=== PATIENT | female | born 1995 | race Caucasian/White ===

== ENCOUNTER 2018-11-18 19:17 | Emergency (ER) | payer BC ==
[2018-11-18 19:22] VITALS: BP 135/92
--- NOTE | 2018-11-18 20:35 | ED ---
Laceration/Wound HPI - HPI Summary HPI Summary: 22 year old female presents with right pinky laceration. cut it while doing dishes on some glass. She denies any foreign body in the wound. area is not actively bleeding. she has full range of motion of finger. Has no medical conditions. - History of Current Complaint Stated Complaint: RT HAND LAC PER PT Time Seen by Provider: 11/18/18 20:21 Pain Intensity: 3 - Allergy/Home Medications Allergies/Adverse Reactions: Allergies Allergy/AdvReac Type Severity Reaction Status Date / Time No Known Allergies Allergy Verified 11/18/18 19:18 Home Medications: Home Medications Desogestrel-Ethinyl Estradiol [ 28 Day Tablet] 1 tab PO DAILY 11/18/18 [ History Confirmed 11/18/18] PMH/Surg Hx/FS Hx/Imm Hx Endocrine/Hematology History: Denies: Hx Anticoagulant Therapy Respiratory History: Denies: Hx Asthma Infectious Disease History: No Infectious Disease History: Denies: Traveled Outside the [place] in Last 30 Days - Family History Known Family History: Positive: Non-Contributory - Social History Alcohol Use: Weekly Substance Use Type: Reports: Marijuana Smoking Status (MU): Never Smoked Tobacco Review of Systems Negative: Fever Negative: Chest Pain Negative: Shortness Of Breath Positive: Other - right pinky laceration All Other Systems Reviewed And Are Negative: Yes Physical Exam Triage Information Reviewed: Yes Vital Signs On Initial Exam: Initial Vitals Temp Pulse Resp BP Pulse Ox 97.9 F 95 18 135/92 99 11/18/18 19:18 11/18/18 19:18 11/18/18 19:18 11/18/18 19:18 11/18/18 19:18 Vital Signs Reviewed: Yes Appearance: Positive: Well-Appearing Skin: Positive: Warm, Dry, Other - 2cm superficial right angle laceration of dorsum of right pinky finger Head/Face: Positive: Normal Head/Face Inspection Eyes: Positive: Normal, Conjunctiva Clear ENT: Positive: Pharynx normal Respiratory/Lung Sounds: Positive: Clear to Auscultation, Breath Sounds Present Cardiovascular: Positive: Normal, RRR Musculoskeletal: Positive: Strength/ROM Intact - right pinky finger, Other - capillary refill<2secs Neurological: Positive: Normal Psychiatric: Positive: Normal Procedures - Laceration/Wound Repair 1 Location: Other - right pinky laceration Description: Irregular Length, Depth and Shape: 2cm superficial Irrigated w/ Saline (ccs): 100 Closure: Skin Adhesive, SteriStrips Sterile Dressing Applied?: No - metal finger splint Diagnostics - Vital Signs Vital Signs Temp Pulse Resp BP Pulse Ox 11/18/18 19:18 97.9 F 95 18 135/92 99 - Laboratory Lab Statement: Any lab studies that have been ordered have been reviewed, and results considered in the medical decision making process. Laceration Repair Course/Dx - Course Course Of Treatment: 22 year old female presents with right pinky laceration. cut it while doing dishes on some glass. She denies any foreign body in the wound. area is not actively bleeding. she has full range of motion of finger. Has no medical conditions. On exam has 2 cm superficial laceration of right pinky finger on dorsum hand. Cleaned area placement Steri-Strips after discuss with patient options. Gave metal finger splint. Keep the area clean and dry and avoid bending it. gave tetanus. Patient understands agrees with plan. - Differential Dx Differental Diagnoses: Abrasion, Avulsion, Laceration - Clinical Impression Provider Diagnoses: Laceration of right little finger Discharge - Sign-Out/Discharge Documenting (check all that apply): Patient Departure Patient Received Moderate/Deep Sedation with Procedure: No - Discharge Plan Condition: Good Disposition: HOME Patient Education Materials: Skin Adhesive Care (ED) Referrals: No Primary Care Phys,NOPCP [Primary Care Provider] - Additional Instructions: Take Tylenol or ibuprofen for pain as needed every 6 hours Keep dry for 24 hours Glue will fall off on own use splint on area for next 5 days Return to ED if develop any signs of infection or any new or worsening symptoms - Billing Disposition and Condition Condition: GOOD Disposition: Home
[2018-11-18] MEDS ORDERED: Tetan/Diph/Pertus SYR(Tdap)* 0.5 ML SYR(BOOSTRIX) use SYR IM ONE (20:42)
== END 2018-11-18 21:14 | disposition home or self-care (01) ==
LOC: ED 19:17
DX: S61.216A Laceration without foreign body of right little finger without damage to nail, initial encounter (principal); W25.XXXA Contact with sharp glass, initial encounter; Y93.G1 Activity, food preparation and clean up; Y92.010 Kitchen of single-family (private) house as the place of occurrence of the external cause; Y99.8 Other external cause status
CPT/HCPCS: 12001; 90715; 96372; 99281